=== PATIENT | female | born 1955 | race Hispanic/Latino ===

== ENCOUNTER → 2017-12-05 | Outpatient (CLI) | payer OTHER | END | disposition home or self-care (01) | LOC: RAH 14:13 | PROVIDERS: ATTEND Family Medicine | DX: Z12.31 Encounter for screening mammogram for malignant neoplasm of breast (principal) | CPT/HCPCS: 77067 ==

== ENCOUNTER 2018-02-28 03:29 | Emergency (ER) | payer OTHER ==
[2018-02-28] MEDS ORDERED: KETOROLAC TROMETHAMINE 60 MG/2 ML VIAL ONE (04:13)
[2018-02-28] MEDS ORDERED: DIAZEPAM 5 MG TABLET ONE (04:13)
== END 2018-02-28 05:23 | disposition home or self-care (01) ==
LOC: EDH 03:29
DX: M54.32 Sciatica, left side (principal)
CPT/HCPCS: 96372; 99283; J1885

== ENCOUNTER 2018-07-15 23:20 | Emergency (ER) | payer OTHER ==
[2018-07-16] MEDS ORDERED: LACTULOSE 20 GM/30 ML UDCUP ONE (00:10)
== END 2018-07-16 00:17 | disposition home or self-care (01) ==
LOC: EDH 23:20
DX: K59.00 Constipation, unspecified (principal); E11.9 Type 2 diabetes mellitus without complications; E78.5 Hyperlipidemia, unspecified; I10 Essential (primary) hypertension; Z88.5 Allergy status to narcotic agent

== ENCOUNTER 2018-11-30 23:38 | Emergency (ER) | payer OTHER ==
[2018-11-30 23:54] LABS: BASOPHILS % (AUTO) 0.6 % (0.0-5.0); EOSINOPHILS % (AUTO) 2.2 % (0.0-8.0); HEMATOCRIT 37.3 % (36-48); MEAN CORPUSCULAR HEMOGLOBIN 28.4 pg (27.0-33.0); MEAN CORPUSCULAR HGB CONC 32.5 g/dL (32.0-36.0); MEAN CORPUSCULAR VOLUME 87.5 fL (79-99); MONOCYTES % (AUTO) 6.5 % (3.0-13.0); NEUTROPHILS % (AUTO) 60.7 % (40.0-77.0); PLATELET COUNT (AUTO) 194 K/uL (130-400); RED BLOOD CELL COUNT(AUTO) 4.26 MIL/uL (4.00-5.50); RED CELL DISTRIBUTION WIDTH 13.6 % (11.0-15.5); WHITE BLOOD COUNT (AUTO) 10.1 K/uL (4.8-10.8)
[2018-12-01 00:07] LABS: INR 0.96 (0.85-1.15); PROTHROMBIN TIME 10.1 SEC (9.6-11.6)
[2018-12-01] MEDS ORDERED: DIAZEPAM 2 MG TAB ONE (00:09)
[2018-12-01 00:10] LABS: POTASSIUM 4.1 mmol/L (3.5-5.1)
[2018-12-01 00:21] LABS: ALBUMIN 3.5 g/dL (3.5-5.0); BILIRUBIN,TOTAL 0.4 mg/dL (0.2-1.0); TOTAL PROTEIN, SERUM 6.6 g/dL (6.0-8.3)
== END 2018-12-01 02:47 | disposition home or self-care (01) ==
LOC: EDH 23:38
DX: R07.89 Other chest pain (principal); R00.2 Palpitations; I10 Essential (primary) hypertension; E78.5 Hyperlipidemia, unspecified; E11.9 Type 2 diabetes mellitus without complications; Z88.6 Allergy status to analgesic agent; Z98.890 Other specified postprocedural states
CPT/HCPCS: 36415; 71045; 80053; 82550; 83874; 83880; 84484; 85025; 85610; 85730; 93005

== ENCOUNTER 2019-01-18 20:17 | Observation (INO) | payer OTHER ==
[2019-01-18 20:32] LABS: BASOPHILS % (AUTO) 0.6 % (0.0-5.0); EOSINOPHILS % (AUTO) 1.8 % (0.0-8.0); HEMATOCRIT 38.7 % (36-48); LYMPHOCYTES % (AUTO) 23.8 % (21.0-51.0); MEAN CORPUSCULAR HEMOGLOBIN 28.8 pg (27.0-33.0); MEAN CORPUSCULAR VOLUME 87.5 fL (79-99); MONOCYTES % (AUTO) 4.8 % (3.0-13.0); PLATELET COUNT (AUTO) 199 K/uL (130-400); RED BLOOD CELL COUNT(AUTO) 4.43 MIL/uL (4.00-5.50); RED CELL DISTRIBUTION WIDTH 13.9 % (11.0-15.5); WHITE BLOOD COUNT (AUTO) 11.6 K/uL (4.8-10.8)
[2019-01-18] MEDS ORDERED: ASPIRIN 325 MG TABLET ONE (20:35)
[2019-01-18 20:43] LABS: CREATININE 0.9 mg/dL (0.5-1.5); POTASSIUM 3.9 mmol/L (3.5-5.1)
[2019-01-18 20:53] LABS: ALBUMIN 3.6 g/dL (3.5-5.0); BILIRUBIN,TOTAL 0.5 mg/dL (0.2-1.0); TOTAL PROTEIN, SERUM 7.6 g/dL (6.0-8.3)
[2019-01-18 21:19] LABS: INR 0.97 (0.85-1.15); PARTIAL THROMBOPLASTIN TIME 37.3 SEC (26.3-35.5); PROTHROMBIN TIME 10.2 SEC (9.6-11.6)
[2019-01-18 22:19] LABS: APPEARANCE,URINE Clear (CLEAR); BILIRUBIN,URINE Negative (NEGATIVE); COLOR,URINE Yellow (YELLOW); GLUCOSE, URINE (UA) Negative (NEGATIVE); KETONES,URINE Negative (NEGATIVE); LEUKOCYTE ESTERASE ,URINE Negative (NEGATIVE); NITRATE,URINE Negative (NEGATIVE); OCCULT BLOOD,URINE Negative (NEGATIVE); PH,URINE 5.5 (5.0-8.0); PROTEIN,URINE Negative (NEGATIVE)
[2019-01-18 23:45] VITALS: BP 128/71
[2019-01-19 04:00] VITALS: BP 104/57
[2019-01-19 05:07] LABS: CREATINE KINASE, TOTAL 34 U/L (21-232); MYOGLOBIN 36 ng/mL (10-92); TROPONIN I < 0.04 ng/mL (0.00-0.06)
[2019-01-19 07:55] VITALS: BP 116/69
[2019-01-19] MEDS ORDERED: ASPIRIN 325MG EC TAB 325 MG TABLET.DR PO SCH (09:00)
[2019-01-19] MEDS ORDERED: CLOPIDOGREL BISULFATE 75 MG TAB PO SCH (09:00)
[2019-01-19 10:52] VITALS: BP 99/56
[2019-01-19 13:01] VITALS: BP 130/71
--- NOTE | 2019-01-19 13:01 | NUR ---
Discharge instructions provided in the room with pt. Sisters at side. Emphasis on Dx, s/s to monitor for, and when to seek emergency treatment vs dial 911. Pt is to follow up with Dr. Torres tomorrow as a walk in. No new rx. As per Dr. Hurd's instructions, pt is to continue with all previous home medications. No home meds listed, pt stated she was unable to get anyone to bring them here to be reconciled. PIV removed, tip intact. Dressed with sterile 2x2 and band aid after hemostasis. Tele pack removed. Pt escorted to [facility] by [facility] staff for transport home via private car. Pt in stable condition at time of discharge. Accompanied by sisters.
[2019-01-19] MEDS ORDERED: ENOXAPARIN SODIUM 120 MG/0.8ML SQ SCH (23:59)
== END 2019-01-19 13:08 | disposition home or self-care (01) ==
LOC: EDH 20:17 → EDHIP 22:52 → 4AH 23:29
PROVIDERS: ADMIT Internal Medicine; ATTEND Internal Medicine
DX: R07.89 Other chest pain (principal); E78.5 Hyperlipidemia, unspecified; I10 Essential (primary) hypertension; Z88.5 Allergy status to narcotic agent; Z88.8 Allergy status to other drugs, medicaments and biological substances
CPT/HCPCS: 36415 ×2; 71045; 80053; 81003; 82550 ×2; 83874 ×2; 84484 ×3; 85025; 85610; 85730; 93005; 99291; G0378 ×14; J1650

== ENCOUNTER 2020-05-15 18:40 | Emergency (ER) | payer OTHER ==
[2020-05-15] MEDS ORDERED: PHENAZOPYRIDINE HCL 200 MG TABLET ONE (18:53)
[2020-05-15] MEDS ORDERED: LIDOCAINE HCL-MPF 1% 2ML VIAL ONE (19:10)
[2020-05-15] MEDS ORDERED: CEFTRIAXONE SODIUM 1 GM ONE (19:10)
[2020-05-15 19:12] LABS: APPEARANCE,URINE Clear (CLEAR); BILIRUBIN,URINE Negative (NEGATIVE); COLOR,URINE Yellow (YELLOW); GLUCOSE, URINE (UA) Negative (NEGATIVE); KETONES,URINE Negative (NEGATIVE); LEUKOCYTE ESTERASE ,URINE Negative (NEGATIVE); NITRATE,URINE Negative (NEGATIVE); OCCULT BLOOD,URINE Negative (NEGATIVE); PROTEIN,URINE Negative (NEGATIVE); UROBILINOGEN,URINE 0.2 mg/dL (0.2-1.0)
== END 2020-05-15 19:43 | disposition home or self-care (01) ==
LOC: EDH 18:40
DX: R30.0 Dysuria (principal); R05 Cough; E78.5 Hyperlipidemia, unspecified; I10 Essential (primary) hypertension; Z88.5 Allergy status to narcotic agent
CPT/HCPCS: 71045; 81003; 96372; 99284; J0696; J3490

== ENCOUNTER 2020-05-25 18:56 | Observation (INO) | payer OTHER, MEDICARE ==
[~2020-05-25] VITALS: Ht 152.4 cm; Wt 104.0 kg
[2020-05-25] MEDS ORDERED: ALBUTEROL INHALER 90MCG/INH IH ONE (19:23)
[2020-05-25] MEDS ORDERED: DEXAMETHASONE SOD PHOSPHATE 10MG/ML 1ML VIAL ONE (19:23)
[2020-05-25 19:50] LABS: ABG BASE EXCESS 2.2 mmol/L (-2.0-3.0); ABG HCO3 25.7 mmol/L (21.0-28.0); ABG OXYGEN SATURATION 91.8 % (95.0-99.0); ABG PCO2 37 mmHg (32-45)
[2020-05-25 19:56] LABS: BASOPHILS % (AUTO) 0.1 % (0.0-5.0); HEMATOCRIT 39.5 % (36-48); LYMPHOCYTES % (AUTO) 14.9 % (21.0-51.0); MEAN CORPUSCULAR HEMOGLOBIN 28.5 pg (27.0-33.0); MEAN CORPUSCULAR HGB CONC 33.2 g/dL (32.0-36.0); MEAN CORPUSCULAR VOLUME 85.9 fL (79-99); MONOCYTES % (AUTO) 8.7 % (3.0-13.0); NEUTROPHILS % (AUTO) 75.1 % (40.0-77.0); PLATELET COUNT (AUTO) 210 K/uL (130-400); RED CELL DISTRIBUTION WIDTH 13.4 % (11.0-15.5); WHITE BLOOD COUNT (AUTO) 10.4 K/uL (4.8-10.8)
[2020-05-25 19:58] LABS: APPEARANCE,URINE Clear (CLEAR); BILIRUBIN,URINE Negative (NEGATIVE); COLOR,URINE Yellow (YELLOW); GLUCOSE, URINE (UA) Negative (NEGATIVE); KETONES,URINE Negative (NEGATIVE); LEUKOCYTE ESTERASE ,URINE Negative (NEGATIVE); NITRATE,URINE Negative (NEGATIVE); OCCULT BLOOD,URINE Negative (NEGATIVE); PH,URINE 6.5 (5.0-8.0); PROTEIN,URINE Negative (NEGATIVE); UROBILINOGEN,URINE 0.2 mg/dL (0.2-1.0)
[2020-05-25 20:06] LABS: CARBON DIOXIDE 27 mmol/L (21-32); CHLORIDE 94 mmol/L (101-111); CREATININE 1.1 mg/dL (0.5-1.5); GLOMERULAR FILTR. RATE CALC 53 mL/min (>60); GLUCOSE,RANDOM 186 mg/dL (70-105); POTASSIUM 3.5 mmol/L (3.5-5.1); SODIUM SERUM 132 mmol/L (136-145); UREA NITROGEN, BLOOD 19 mg/dL (7-18)
[2020-05-25 20:14] LABS: INR 1.11 (0.85-1.15); PROTHROMBIN TIME 11.8 SEC (9.6-11.6)
[2020-05-25 20:15] LABS: PARTIAL THROMBOPLASTIN TIME 34.7 SEC (26.3-35.5)
[2020-05-25 20:17] LABS: ALANINE AMINOTRANSFERASE 56 U/L (12-78); ALBUMIN 2.9 g/dL (3.5-5.0); ASPARTATE AMINOTRANSFERASE 56 U/L (10-37); BILIRUBIN,TOTAL 0.9 mg/dL (0.2-1.0); CREATINE KINASE, TOTAL 105 U/L (21-232); MYOGLOBIN 174 ng/mL (10-92); TOTAL PROTEIN, SERUM 7.2 g/dL (6.0-8.3); TROPONIN I < 0.04 ng/mL (0.00-0.06)
[2020-05-25] MEDS ORDERED: CEFTRIAXONE SODIUM 1 GM ONE (21:55)
[2020-05-25] MEDS ORDERED: AZITHROMYCIN 500MG+NS 250ML 250 ML IV ONE (21:55)
[2020-05-25 22:10] LABS: RAPID GROUP A STREP NEGATIVE (NEGATIVE)
[2020-05-25] MEDS ORDERED: SODIUM CHLORIDE 0.9% 1000ML 1,000 ML IV ONE (23:46)
[2020-05-25] MEDS ORDERED: FAMOTIDINE 20MG TAB 20 MG TAB ONE (23:46)
[2020-05-25] MEDS ORDERED: ENOXAPARIN SODIUM 30 MG/0.3 ML SQ ONE (23:47)
[2020-05-26 04:04] LABS: ABG BASE EXCESS 0.7 mmol/L (-2.0-3.0); ABG HCO3 25.7 mmol/L (21.0-28.0); ABG OXYGEN SATURATION 97.8 % (95.0-99.0); ABG PCO2 43 mmHg (32-45)
[2020-05-26] MEDS ORDERED: SODIUM CHLORIDE 0.9% 1000ML 1,000 ML IV SCH (08:00)
[2020-05-26] MEDS ORDERED: DEXAMETHASONE SOD PHOSPHATE 10MG/ML 1ML VIAL ONE (08:03)
[2020-05-26] MEDS ORDERED: ENOXAPARIN SODIUM 30 MG/0.3 ML SQ ONE ×2 (08:04→20:33)
[2020-05-26] MEDS ORDERED: FAMOTIDINE 20MG TAB 20 MG TAB ONE ×2 (08:04→20:31)
[2020-05-26] MEDS ORDERED: DEXAMETHASONE SOD PHOSPHATE 4 MG/ML 1ML VIAL IVP SCH (09:00)
[2020-05-26] MEDS ORDERED: AZITHROMYCIN 250 MG TABLET PO SCH (09:00)
[2020-05-26] MEDS ORDERED: ENOXAPARIN SODIUM 30 MG/0.3 ML SQ SCH ×2 (09:00→21:00)
[2020-05-26] MEDS ORDERED: FAMOTIDINE 20MG TAB 20 MG TAB PO SCH (09:00)
[2020-05-26] MEDS ORDERED: ALBUTEROL INHALER 90MCG/INH IH SCH (12:00)
[2020-05-26] MEDS ORDERED: ONDANSETRON HCL 4 MG/2 ML VIAL IVP PRN (12:30)
[2020-05-26] MEDS ORDERED: PROMETHAZINE/CODEINE 6.25-10MG/5ML CUP PO PRN (12:30)
[2020-05-26] MEDS ORDERED: ACETAMINOPHEN 325 MG TAB PO PRN (12:30)
[2020-05-26] MEDS ORDERED: DIPHENHYDRAMINE HCL 25 MG CAPSULE PO PRN (12:30)
[2020-05-26] MEDS ORDERED: ZOSYN 3.375GM+NS 50ML 50 ML IV ONE ×2 (12:49→20:32)
[2020-05-26] MEDS ORDERED: ZOSYN 3.375GM+NS 50ML 50 ML IV SCH (13:00)
[2020-05-26 14:08] LABS: CRP QUANTITATIVE 176.9 mg/L (0.00-9.0)
[2020-05-26] MEDS ORDERED: FUROSEMIDE 10 MG/ML 2ML VIAL IV SCH (18:00)
[2020-05-26] MEDS ORDERED: FUROSEMIDE 10 MG/ML 2ML VIAL ONE (18:23)
[2020-05-26] MEDS ORDERED: CEFTRIAXONE SODIUM 1 GM ONE (20:31)
[2020-05-26] MEDS ORDERED: AZITHROMYCIN 250 MG TABLET PO ONE (20:32)
[2020-05-27] MEDS ORDERED: FUROSEMIDE 10 MG/ML 2ML VIAL ONE ×2 (01:57→10:19)
[2020-05-27] MEDS ORDERED: ZOSYN 3.375GM+NS 50ML 50 ML IV ONE (03:52)
[2020-05-27] MEDS ORDERED: ACETAMINOPHEN 325 MG TAB ONE (05:21)
[2020-05-27 05:23] LABS: BASOPHILS % (AUTO) 0.1 % (0.0-5.0); HEMATOCRIT 39.3 % (36-48); LYMPHOCYTES % (AUTO) 7.2 % (21.0-51.0); MEAN CORPUSCULAR HEMOGLOBIN 27.9 pg (27.0-33.0); MEAN CORPUSCULAR HGB CONC 32.1 g/dL (32.0-36.0); MEAN CORPUSCULAR VOLUME 87.1 fL (79-99); MONOCYTES % (AUTO) 5.4 % (3.0-13.0); NEUTROPHILS % (AUTO) 86.5 % (40.0-77.0); PLATELET COUNT (AUTO) 244 K/uL (130-400); RED BLOOD CELL COUNT(AUTO) 4.51 MIL/uL (4.00-5.50); RED CELL DISTRIBUTION WIDTH 13.5 % (11.0-15.5)
[2020-05-27 06:22] LABS: CREATININE 1.1 mg/dL (0.5-1.5); CRP QUANTITATIVE 112.5 mg/L (0.00-9.0); POTASSIUM 4.1 mmol/L (3.5-5.1)
[2020-05-27] MEDS ORDERED: ASCORBIC ACID 500 MG TAB PO SCH (09:00)
[2020-05-27] MEDS ORDERED: ZINC SULFATE 220 CAPSULE PO SCH (09:00)
[2020-05-27] MEDS ORDERED: ASCORBIC ACID 500 MG TAB ONE (10:18)
[2020-05-27] MEDS ORDERED: DEXAMETHASONE SOD PHOSPHATE 10MG/ML 1ML VIAL ONE (10:18)
[2020-05-27] MEDS ORDERED: FAMOTIDINE 20MG TAB 20 MG TAB ONE (10:19)
[2020-05-27] MEDS ORDERED: ENOXAPARIN SODIUM 40 MG/0.4 ML SYRINGE SQ ONE (10:20)
[2020-05-27] MEDS ORDERED: ZINC SULFATE 220 CAPSULE ONE (10:20)
[2020-05-27] MEDS ORDERED: AZITHROMYCIN 250 MG TABLET PO ONE (10:21)
[2020-05-27] MEDS ORDERED: DOXY100C2 PO (12:14)
[2020-05-27] MEDS ORDERED: DEXA6TAB PO (12:14)
--- NOTE | 2020-05-27 14:32 | NUR ---
DC PLAN SPOKE TO PATIENT. PATIENT MET INPATIENT. SPOKE TO JASON BUSH SAID LEAVE OBS DC HOME. EVAL FOR DONE MET CRITERIA. ADOLFO OVER THE PHONE FOR . SAID PREFERS APRIL TO [facility]. PACKET SENT TO [facility] [employer]AT CONCENTRATOR AND OXYGEN TANK. FORM FILLED LEFT FOR NURSE TO HAVE PATIENT SIGN WITH INSTRUCTIONS TO FAX. CONFIRMED PHYSICAL ADDRESS [address] [place] [address]. PATIENT PHONE NUMBER [phone]. EQUIPMENT LEFT WITH NURSE IN ER. Addendum: 05/27/20 at 1442 by ESDRAS OCONNOR RN CM Amended: Links added.
== END 2020-05-27 17:58 | disposition home or self-care (01) ==
LOC: EDH 18:56 → EDHIP 22:52
PROVIDERS: ADMIT Internal Medicine Critical Care Medicine; ATTEND Internal Medicine Critical Care Medicine
DX: U07.1 COVID-19 (principal); J12.9 Viral pneumonia, unspecified; J96.91 Respiratory failure, unspecified with hypoxia; E11.9 Type 2 diabetes mellitus without complications; E78.5 Hyperlipidemia, unspecified; I10 Essential (primary) hypertension; E66.01 Morbid (severe) obesity due to excess calories; J45.909 Unspecified asthma, uncomplicated; J42 Unspecified chronic bronchitis; Z79.899 Other long term (current) drug therapy; Z88.5 Allergy status to narcotic agent; Z68.41 Body mass index [BMI] 40.0-44.9, adult
CPT/HCPCS: 36415 ×3; 36600 ×2; 71045 ×2; 71250; 80048; 80053; 81003; 82550; 82728 ×2; 82803 ×2; 83605 ×2; 83615 ×2; 83874; 83880; 84145 ×2; 84484; 85025 ×2; 85378 ×2; 85610; 85730; 86140 ×2; 86850; 86900; 86901; 87040 ×2; 87088; 87426; 87804 ×2; 87880; 93005; 94760 ×2; 99285; G0378 ×43; J0456; J0696 ×2; J1100 ×3; J1650 ×4; J1940 ×3; J2543 ×3; J7030

== ENCOUNTER 2020-06-09 22:32 | Inpatient (IN) | payer OTHER, MEDICARE ==
[~2020-06-09] VITALS: Ht 152.4 cm; Wt 102.1 kg
[~2020-06-09 22:32] MED LIST: DEXA6TAB PO; DOXY100C5 PO
[2020-06-09] MEDS ORDERED: LIDOCAINE HCL 2% VISCOUS 15 ML UDCUP ONE (23:05)
[2020-06-09] MEDS ORDERED: ACETAMINOPHEN 500 MG TABLET ONE (23:05)
[2020-06-09] MEDS ORDERED: MAG/ALUM/SIMETH 30 ML UDCUP ONE (23:05)
[2020-06-09 23:18] LABS: APPEARANCE,URINE Clear (CLEAR); BILIRUBIN,URINE Negative (NEGATIVE); COLOR,URINE Yellow (YELLOW); GLUCOSE, URINE (UA) Negative (NEGATIVE); KETONES,URINE Negative (NEGATIVE); LEUKOCYTE ESTERASE ,URINE Negative (NEGATIVE); NITRATE,URINE Negative (NEGATIVE); OCCULT BLOOD,URINE Negative (NEGATIVE); PROTEIN,URINE Negative (NEGATIVE); UROBILINOGEN,URINE 0.2 mg/dL (0.2-1.0)
[2020-06-09 23:25] LABS: BASOPHILS % (AUTO) 0.1 % (0.0-5.0); EOSINOPHILS % (AUTO) 0.6 % (0.0-8.0); HEMATOCRIT 37.7 % (36-48); LYMPHOCYTES % (AUTO) 21.5 % (21.0-51.0); MEAN CORPUSCULAR HEMOGLOBIN 28.7 pg (27.0-33.0); MEAN CORPUSCULAR HGB CONC 32.6 g/dL (32.0-36.0); MEAN CORPUSCULAR VOLUME 87.9 fL (79-99); MONOCYTES % (AUTO) 10.3 % (3.0-13.0); NEUTROPHILS % (AUTO) 66.7 % (40.0-77.0); PLATELET COUNT (AUTO) 229 K/uL (130-400); RED BLOOD CELL COUNT(AUTO) 4.29 MIL/uL (4.00-5.50); RED CELL DISTRIBUTION WIDTH 13.5 % (11.0-15.5); WHITE BLOOD COUNT (AUTO) 14.6 K/uL (4.8-10.8)
[2020-06-09 23:36] LABS: CREATININE 0.9 mg/dL (0.5-1.5); POTASSIUM 3.8 mmol/L (3.5-5.1)
[2020-06-09] MEDS ORDERED: FAMOTIDINE 20MG TAB ONE (23:41)
[2020-06-09 23:43] LABS: ALBUMIN 2.8 g/dL (3.5-5.0); BILIRUBIN,TOTAL 0.5 mg/dL (0.2-1.0); TOTAL PROTEIN, SERUM 6.3 g/dL (6.0-8.3)
[2020-06-10] MEDS ORDERED: 0.9%NACL 1000ML 1,000 ML IV ONE (00:08)
[2020-06-10] MEDS ORDERED: 1/2 NS 1000ML 1,000 ML IV ONE (03:00)
[2020-06-10 05:20] VITALS: BP 113/74
[2020-06-10] MEDS: 1/2 NS 1000ML 1,000 ML IV SCH ×2 (05:30→13:30)
[2020-06-10] MEDS ORDERED: ONDANSETRON 4MG INJ IVP PRN (05:30)
[2020-06-10] MEDS ORDERED: HYDROMORPHONE 2 MG VIAL (2MG/ML) IVP PRN (05:30)
[2020-06-10 06:21] LABS: HEMATOCRIT 36.5 % (36-48); MEAN CORPUSCULAR HEMOGLOBIN 28.2 pg (27.0-33.0); MEAN CORPUSCULAR HGB CONC 31.8 g/dL (32.0-36.0); MEAN CORPUSCULAR VOLUME 88.6 fL (79-99); RED BLOOD CELL COUNT(AUTO) 4.12 MIL/uL (4.00-5.50); RED CELL DISTRIBUTION WIDTH 13.8 % (11.0-15.5); WHITE BLOOD COUNT (AUTO) 10.9 K/uL (4.8-10.8)
[2020-06-10 06:41] LABS: ALBUMIN 2.5 g/dL (3.5-5.0); BILIRUBIN,TOTAL 0.6 mg/dL (0.2-1.0); POTASSIUM 4.4 mmol/L (3.5-5.1); TOTAL PROTEIN, SERUM 5.9 g/dL (6.0-8.3)
[2020-06-10 07:30] VITALS: BP 101/67
[2020-06-10] MEDS ORDERED: GLUC-252 PO (07:59)
[2020-06-10] MEDS ORDERED: METO-391 PO (07:59)
[2020-06-10] MEDS ORDERED: LISI20TA24 PO (07:59)
[2020-06-10] MEDS ORDERED: ROSU40 PO (07:59)
[2020-06-10] MEDS ORDERED: CALC1TAB2 PO (07:59)
[2020-06-10] MEDS ORDERED: ALBUTEROL INHALER 90MCG/INH IH PRN (09:00)
[2020-06-10] MEDS: PANTOPRAZOLE 40 MG/VIAL IVP SCH (09:10)
[2020-06-10 11:00] VITALS: BP 98/62
[2020-06-10 16:00] VITALS: BP 137/69
[2020-06-10] MEDS: ENOXAPARIN SODIUM 30 MG/0.3 ML SQ SCH (19:00)
[2020-06-10 19:42] VITALS: BP 124/68
[2020-06-10] MEDS: LACTATED RINGERS 1000ML 1,000 ML IV SCH (19:51)
[2020-06-10] MEDS ORDERED: ZOLPIDEM TARTRATE 5 MG TAB PO PRN (21:00)
[2020-06-10 23:38] VITALS: BP 104/52
[2020-06-11] MEDS: LACTATED RINGERS 1000ML 1,000 ML IV SCH ×2 (04:29→09:00)
[2020-06-11 04:35] LABS: HEMATOCRIT 33.6 % (36-48); MEAN CORPUSCULAR HEMOGLOBIN 27.7 pg (27.0-33.0); MEAN CORPUSCULAR HGB CONC 31.8 g/dL (32.0-36.0); RED BLOOD CELL COUNT(AUTO) 3.86 MIL/uL (4.00-5.50); RED CELL DISTRIBUTION WIDTH 13.9 % (11.0-15.5); WHITE BLOOD COUNT (AUTO) 10.1 K/uL (4.8-10.8)
[2020-06-11 04:38] VITALS: BP 106/72
[2020-06-11 04:43] LABS: CREATININE 0.7 mg/dL (0.5-1.5)
[2020-06-11 04:47] LABS: ALBUMIN 2.2 g/dL (3.5-5.0); BILIRUBIN,TOTAL 0.7 mg/dL (0.2-1.0); TOTAL PROTEIN, SERUM 5.5 g/dL (6.0-8.3)
[2020-06-11 08:00] VITALS: BP 109/62
[2020-06-11] MEDS: ENOXAPARIN SODIUM 30 MG/0.3 ML SQ SCH (09:38)
[2020-06-11] MEDS: PANTOPRAZOLE 40 MG/VIAL IVP SCH (09:38)
[2020-06-11 11:00] VITALS: BP 110/67
[2020-06-11] MEDS ORDERED: PANT40TA54 PO (11:59)
== END 2020-06-11 12:45 | disposition home or self-care (01) | DRG 438 ==
LOC: EDH 22:32 → EDHIP 06-10 02:52 → OBSVTOIN 06-10 02:52 → 3DH 06-10 03:51
PROVIDERS: ADMIT Internal Medicine; ATTEND Internal Medicine
DX: K85.90 Acute pancreatitis without necrosis or infection, unspecified (principal); U07.1 COVID-19; E11.9 Type 2 diabetes mellitus without complications; E78.5 Hyperlipidemia, unspecified; I10 Essential (primary) hypertension; K29.70 Gastritis, unspecified, without bleeding
CPT/HCPCS: 36415; 71045; 76705; 80053; 81003; 82150; 82550; 83690; 84484; 85025; 85027; 87426; 93005; C9113; G0378; J1650; J7030; J7120; U0003

== ENCOUNTER 2021-06-22 19:37 | Emergency (ER) | payer OTHER, MEDICARE ==
[~2021-06-22] VITALS: Ht 152.4 cm; Wt 106.6 kg
[~2021-06-22 19:37] MED LIST changes: +CALC1TAB2 PO; -DOXY100C5 PO; +GLUC-252 PO; +LISI20TA24 PO; +METO-391 PO; +PANT40TA54 PO; +ROSU40 PO
[2021-06-22 19:38] VITALS: BP 163/79
[2021-06-22] MEDS ORDERED: HYDROCODONE/ACETAMINOPHEN 10/325 MG TAB ONE (22:04)
[2021-06-22] MEDS ORDERED: HYDROCODONE/ACETAMINOPHEN 10/325 MG TAB PO ONE (22:30)
[2021-06-22] MEDS ORDERED: ACET-2247 PO (22:39)
== END 2021-06-22 22:56 | disposition home or self-care (01) ==
LOC: EDH 19:37
DX: S52.502A Unspecified fracture of the lower end of left radius, initial encounter for closed fracture (principal); S52.612A Displaced fracture of left ulna styloid process, initial encounter for closed fracture; S80.02XA Contusion of left knee, initial encounter; I10 Essential (primary) hypertension; E78.00 Pure hypercholesterolemia, unspecified; Z88.1 Allergy status to other antibiotic agents; Z88.5 Allergy status to narcotic agent; Z79.899 Other long term (current) drug therapy; W10.9XXA Fall (on) (from) unspecified stairs and steps, initial encounter; Y93.89 Activity, other specified; Y92.098 Other place in other non-institutional residence as the place of occurrence of the external cause; Y99.8 Other external cause status
CPT/HCPCS: 29125; 73110; 73562

== ENCOUNTER → 2023-02-05 | Outpatient (CLI) | payer OTHER ==
[~2023-02-05] MED LIST changes: +ACET-2247 PO
== END | disposition home or self-care (01) ==
LOC: OIH 09:58
PROVIDERS: ATTEND Internal Medicine Cardiovascular Disease
DX: Z13.6 Encounter for screening for cardiovascular disorders (principal)
CPT/HCPCS: 75571

== ENCOUNTER → 2023-08-21 | Outpatient (CLI) | payer SELFPAY ==
[~2023-08-21] MED LIST changes: +IOHEXOL 350 MG/ML 100ML INFUS..BTL IV ONE; +METOPROLOL TARTRATE 1 MG/ML 5ML VIAL IV ONE
== END | disposition home or self-care (01) ==
LOC: RAH 08:34
PROVIDERS: ATTEND Internal Medicine Cardiovascular Disease
DX: I25.10 Atherosclerotic heart disease of native coronary artery without angina pectoris (principal)
CPT/HCPCS: 75574; J3490 ×3; Q9967